=== PATIENT | female | born 1990 | race Two or more races ===

== ENCOUNTER 2019-04-02 14:31 | Emergency (ER) | payer MEDICAID ==
[~2019-04-02] VITALS: Ht 157.5 cm; Wt 78.9 kg
[2019-04-02] MEDS ORDERED: ACETAMINOPHEN 325 MG TAB PO ONE ×2 (17:30→17:36)
[2019-04-02 17:35] LABS: Urine Bacteria NONE SEEN /hpf (None Seen); Urine Blood 2+ /uL (Negative); Urine Specific Gravity 1.003 (1.001-1.035); Urine WBC 1 /hpf (0 - 5)
[2019-04-02 17:36] VITALS: BP 131/75
[2019-04-02] MEDS ORDERED: SODIUM CHLORIDE 0.9% 1,000 ML IV ONE (18:30)
[2019-04-02] MEDS ORDERED: KETOROLAC TROMETH 30 MG/ML 1ML VIAL IV ONE (18:30)
== END 2019-04-02 19:39 | disposition home or self-care (01) ==
LOC: ER 14:31
DX: N20.0 Calculus of kidney (principal)
CPT/HCPCS: 74176; 81001; 81025; 96374; 99284; J1885; J7030